=== PATIENT | female | born 1970 | race Caucasian/White ===

== ENCOUNTER 2021-01-29 06:50 | Inpatient (IN) | payer MEDICAID, OTHER ==
[2021-01-29] VITALS (12 sets, daily range): BP systolic 92–119; BP diastolic 46–74
[~2021-01-29] VITALS: Ht 162.6 cm; Wt 79.0 kg
--- NOTE | 2021-01-29 06:55 | NUR ---
Pt taken direct back from triage to room 17, changing to gown.
--- NOTE | 2021-01-29 07:05 | NUR ---
PT PRESENTS TO ED WITH C/O SOB AND LE SWELLING. DENIES CHEST PAIN. STATES SHE HAS NOT BEEN TO SEE A DOCTOR IN A "VERY BETINA GTIME". PT PRESENTS PALE AND ANXIOUS, RESPS SLIGHTLY LABORED, A&O. ALL MONITORS ATTACHED, ERPA AT BEDSIDE FOR EVAL.
--- NOTE | 2021-01-29 07:48 | NUR ---
PRECEPTOR RN NOTE: ALL MONITORS IN PLACE. PT IS SINUS TACH RATE 100'S WITH NO ECTOPY ON CLAIMS ASSOCIATE. PT IS A&O, RESPS EVEN AND UNLABORED, DENIES SOB/PAIN. PT NOTES SHE HAS HAD 3 EPISODES OF NOTING BRIGHT RED BLOOD UPON WIPING AFTER BM OVER LAST 3 DAYS. PT DENIES HEMATOCHEZIA. DENIES DARK/BLACK STOOLS. PT NOTES SOB ONLY UPON EXERTION. NAYLA UGARTE AT BEDSIDE FOR RECTAL EXAM.
--- NOTE | 2021-01-29 07:50 | NUR ---
johnathan Quinones at bedside for eval
[2021-01-29 07:53] LABS: ALBUMIN 2.5 g/dL (3.4-5.0); ANION GAP 13 mmol/L (5-15); CALCIUM 7.9 mg/dL (8.5-10.1); CHLORIDE 105 mmol/L (98-107)
[2021-01-29] MEDS ORDERED: ASPIRIN PO (07:55)
[2021-01-29] MEDS ORDERED: aleve PO (07:55)
[2021-01-29 07:56] LABS: ALANINE AMINOTRANSFERASE 38 U/L (12-78); ALKALINE PHOSPHATASE 60 U/L (45-117); CREATININE 0.94 mg/dL (0.55-1.02); TOTAL PROTEIN 6.9 g/dL (6.4-8.2)
[2021-01-29 08:29] LABS: MEAN CORPUSCULAR HEMOGLOBIN 21.1 pg (27.0-34.8); MEAN PLATELET VOLUME 7.4 fL (7.4-10.4); PLATELET COUNT 172 x10^3/uL (130-400); RED BLOOD COUNT 1.43 x10^6/uL (3.82-5.3); RED CELL DISTRIBUTION WIDTH 23.5 % (9.6-15.2)
[2021-01-29] MEDS ORDERED: SODIUM CHLORIDE FLUSH 10ML SYR IVF ONE (08:30)
[2021-01-29 08:35] LABS: INTERNATIONAL NORMALIZED RATIO 1.34 (0.93-1.1); MEAN CORPUSCULAR HGB CONC 29.2 g/dL (32.4-35.8); PROTHROMBIN TIME 14.3 Seconds (9.6-11.5)
[2021-01-29] MEDS ORDERED: PANTOPRAZOLE 40 MG IV ONE ×2 (08:44→09:26)
[2021-01-29 08:53] LABS: BAND#(MANUAL) 0.05 x10^3/uL; BANDS%(MANUAL) 1 % (0-7); BASOS#(MANUAL) 0.05 x10^3/uL (0-0.1); BASOS% (MANUAL) 1 % (0-1); LYMPH#(MANUAL) 0.61 x10^3/uL (1-3.4); LYMPHS% (MANUAL) 12 % (22-44); MONOS#(MANUAL) 0.36 x10^3/uL (0.3-2.7); MONOS% (MANUAL) 7 % (2-9); SEG#(MANUAL) 4.03 x10^3/uL (1.8-6.8); SEGS% (MANUAL) 79 % (42-75)
[2021-01-29 08:54] LABS: ANISOCYTOSIS 2+; HYPOCHROMIA 2+; MICROCYTOSIS 2+; POLYCHROMASIA 1+
[2021-01-29 08:55] LABS: <PLATELET ESTIMATE> DECREASED; <PLT MORPHOLOGY> NORMAL PLT MORPH; OVALOCYTES 1+; STOMATOCYTES 1+
[2021-01-29] MEDS ORDERED: PANTOPRAZOLE 80 MG in SODIUM CHLORIDE 0.9% 50 ML IVPB ONE (09:00)
[2021-01-29] MEDS ORDERED: PANTOPRAZOLE 40 MG IV IVPush ONE ×2 (09:00→09:30)
--- NOTE | 2021-01-29 09:10 | NUR ---
order for protonix clarified with lily salinas, edpa notified protonix 40mg iv push given, no maintenance ordered. edpa instructed rn to hold 80 mg iv protonix bolus, ordered an additional 40mg protonix iv push, as well as protonix maintenance drip. pt is a&o, resps even and unlabored, vss. sinus tach rate 100s with no ectopy. piv started x 2, prbcs ordered from blood bank.
[2021-01-29 09:16] LABS: ACETONE, SERUM Negative (Negative)
[2021-01-29] MEDS ORDERED: PANTOPRAZOLE 80 MG in SODIUM CHLORIDE 0.9% 100 ML IV SCH ×2 (09:30→17:00)
--- NOTE | 2021-01-29 09:37 | NUR ---
BLOOD RECEIVED FROM BLOOD BANK. PT IS A NEGATIVE BLOOD TYPE, BLOOD RECEIVED IS O NEGATIVE. BLOOD BANK CALLED TO CONFIRM THIS BLOOD COMPATIBLE WITH PT BLOOD TYPE, BLOOD BANK OK'Eve RN TO ADMIN BLOOD RECEIVED.
--- NOTE | 2021-01-29 09:53 | NUR ---
BLOOD TRANSFUSING TO PIV (LEFT FOREARM 20G), PROTONIX INFUSING TO PIV (RIGHT FOREARM 20G), PT TOLERATING WELL. SINUS TACH RATE 90'S WITH NO ECTOPY ON FINISHING ROOM SUPERVISOR. PT A&O, RESPS EVEN AND UNLABORED. PT MONITORED 1:1 BY RN AT BEDSIDE PER POLICY FOR FIRST 15 MIN OF TRANSFUSION. BREATH SOUNDS CLEAR THROUGHOUT PRIOR TO TRANSFUSION. PT HAS NO COMPLAINT, TOLERATING TRANSFUSION WELL.
--- NOTE | 2021-01-29 10:31 | NUR ---
PT TOLERATING TRANSFUSION WELL, RATE OF TRANSFUSION INCREASED TO 500ML/HR. PT IS A&O, RESPS EVEN AND UNLABORED, SINUS TACH RATE 90'S WITH NO ECTOPY ON DRUM TESTER. PT HAS NO COMPLAINT, NO S/SX TRANSFUSION REACTION. PROTONIX INFUSING VIA IV PUMP. HOSPITALIST MD ROWLAND AT BEDSIDE FOR ADMIT.
[2021-01-29] MEDS ORDERED: IRON SUCROSE COMPLEX 100MG/5ML IV ONE (10:42)
[2021-01-29] MEDS ORDERED: ACETAMINOPHEN 325 MG TABLET PO PRN (11:00)
[2021-01-29] MEDS ORDERED: ONDANSETRON ODT 4 MG PO PRN (11:00)
[2021-01-29] MEDS ORDERED: ENOXAPARIN 40 MG/0.4 ML SQ SCH (11:00)
[2021-01-29] MEDS ORDERED: ONDANSETRON 2MG/ML, 2ML IVPush PRN (11:00)
--- NOTE | 2021-01-29 11:02 | NUR ---
PT SITTING IN BED, TOLERATING TRANFUSION WELL, ASYMPTOMTIC. PT A&O, RESPS EVEN AND UNLABORED, VSS, NADN.
--- NOTE | 2021-01-29 11:08 | NUR ---
REPORT GIVEN TO RECEIVING SHELLY ESCALANTE
--- NOTE | 2021-01-29 11:10 | NUR ---
GI MD AT BEDSIDE FOR CONSULT
[2021-01-29] MEDS ORDERED: OCTREOTIDE 50 MCG/ML, 1ML (0.05MG/ML) IVPush ONE (11:30)
[2021-01-29] MEDS ORDERED: OCTREOTIDE 500 MCG in SODIUM CHLORIDE 0.9% 99 ML IV PRN (11:30)
--- NOTE | 2021-01-29 11:53 | NUR ---
PRECEPTOR RN NOTE: FINE TREMORS NOTED AT TIME OF GI MD ASSESSMENT, GI AWARE. KAREY NIEVES NOTIFIED NO CIWA PROTOCOL ORDERED, MD INSTRUCTED RN TO CALL PT'S HOSPITALIST FOR THIS ORDER. THIS RN CALLED MD ROWLAND WHO GAVE TELEPHONE ORDER FOR CIWA PROTOCOL, ATIVAN TO BE ADMINISTERED PO OR IV VIA SLIDING SCALE BASED ON CIWA SCORE, UP TO 2MG. PHARMACIST ANJUM CALLED FOR ASSISTANCE IN PLACING ORDER, ORDER PLACED WITH PHARMACIST ASSISTANCE. MD ROWLAND NOTIFIED THAT FIRST UNIT OF BLOOD IS COMPLETE, FINAL BLOOD VITAL SIGNS SHOWED INCREASE OF TEMP FROM 98.1 TO 98.7. LUNG SOUNDS AUSCULTATED CLEAR THROUGHOUT S/P BLOOD TRANSFUSION. PT A&O, RESPS EVEN AND UNLABORED, DENIES PAIN, NO COMPLAINT AT TIME OF TRANSPORT. ACKNOWLEDGED THIS INFORMATION, NO FURTHER ORDERS GIVEN.
[2021-01-29] MEDS ORDERED: LORazepam 0.5MG TABLET PO PRN (12:00)
[2021-01-29] MEDS ORDERED: LORazepam 2 MG/ML, 1ML IV PRN ×3 (12:00)
[2021-01-29] MEDS ORDERED: IRON DEXTRAN COMPLEX 25 MG in SODIUM CHLORIDE 0.9% 50 ML IV ONE (12:00)
[2021-01-29] MEDS ORDERED: IRON DEXTRAN COMPLEX 0 MG in SODIUM CHLORIDE 0.9% 250 ML IV ONE (12:00)
[2021-01-29] MEDS ORDERED: LORazepam 1MG TABLET PO PRN ×2 (12:00)
--- NOTE | 2021-01-29 12:07 | NUR ---
SHELLY VELÁSQUEZ CONTACTED REGARDING NEW ORDERES FOR CIWA PROTOCOL. RECEIVING SHELLY VELÁSQUEZ NOTIFIED THAT FIRST UNIT BLOOD IS COMPLETE, 2 MORE ORDERED BY EDMD IN ADDITION. CONSENT FORM FOR BLOOD SIGNED BY PT AND NAYLA UGARTE, SENT UP TO FLOOR WITH PT CHART.
[2021-01-29] MEDS ORDERED: EPINEPHRINE 1 MG/ML, 1ML IV PRN (12:30)
[2021-01-29 13:52] LABS: % IRON SATURATION 15 % (20-55); IRON LEVEL 92 mcg/dL (50-170); TOTAL IRON BINDING CAPACITY 599 mcg/dL (250-450)
[2021-01-29] MEDS ORDERED: SODIUM CHLORIDE 0.9% IV ONE ×2 (15:00→15:20)
[2021-01-29] MEDS ORDERED: IRON DEXTRAN COMPLEX IV ONE ×2 (15:00→15:20)
[2021-01-29] MEDS: LACTOBACILLUS CHEW TABLET PO SCH ×2 (16:00→20:30)
[2021-01-29 16:28] LABS: AMPHETAMINE SCREEN, URINE Negative (Negative); BARBITURATE SCREEN, URINE Negative (Negative); BENZODIAZEPINE SCREEN, URINE Negative (Negative); CANNABINOID SCREEN, URINE Negative (Negative); COCAINE SCREEN, URINE Negative (Negative); METHADONE SCREEN, URINE Negative (Negative); OPIATE SCREEN, URINE Negative (Negative)
[2021-01-29] MEDS ORDERED: MIDAZOLAM 1 MG/ML, 2ML ONE (16:35)
[2021-01-29] MEDS ORDERED: PROPOFOL 10 MG/ML, 20ML ONE (16:53)
[2021-01-29] MEDS: NICOTINE 7 MG/24 HR PATCH.TD24 TD SCH (17:55)
[2021-01-29] MEDS: PANTOPRAZOLE 80 MG in SODIUM CHLORIDE 0.9% 100 ML IV SCH (20:30)
[2021-01-29] MEDS: CARVEDILOL 6.25 MG TABLET PO SCH (20:30)
[2021-01-30] VITALS (17 sets, daily range): BP systolic 100–115; BP diastolic 59–79
[2021-01-30 05:36] LABS: BASOPHILS % (AUTO) 1 % (0-1); EOSINOPHILS % (AUTO) 1 % (1-7); LYMPHOCYTES % (AUTO) 20 % (22-44); MEAN CORPUSCULAR HGB CONC 33.3 g/dL (32.4-35.8); MEAN PLATELET VOLUME 7.8 fL (7.4-10.4); MONOCYTES % (AUTO) 12 % (2-9); NEUTROPHILS % (AUTO) 67 % (42-75); PLATELET COUNT 127 x10^3/uL (130-400); RED BLOOD COUNT 2.18 x10^6/uL (3.82-5.3); RED CELL DISTRIBUTION WIDTH 24.2 % (9.6-15.2)
[2021-01-30 05:45] LABS: CHLORIDE 108 mmol/L (98-107)
[2021-01-30 05:59] LABS: ANION GAP 6 mmol/L (5-15); CALCIUM 7.7 mg/dL (8.5-10.1); CREATININE 0.86 mg/dL (0.55-1.02)
[2021-01-30 06:30] LABS: ANISOCYTOSIS 2+; HYPOCHROMIA 2+; MICROCYTOSIS 1+; POLYCHROMASIA 1+; STOMATOCYTES 1+
[2021-01-30 06:31] LABS: <PLATELET ESTIMATE> ADEQUATE; <PLT MORPHOLOGY> NORMAL PLT MORPH; OVALOCYTES 1+
[2021-01-30] MEDS: IRON SUCROSE COMPLEX 100MG/5ML IV SCH (07:53)
[2021-01-30] MEDS: PANTOPRAZOLE 80 MG in SODIUM CHLORIDE 0.9% 100 ML IV SCH (07:53)
[2021-01-30] MEDS: LACTOBACILLUS CHEW TABLET PO SCH ×3 (07:54→20:19)
[2021-01-30] MEDS ORDERED: SODIUM CHLORIDE 0.9% 250 ML IV ONE (11:30)
[2021-01-30] MEDS: NICOTINE 7 MG/24 HR PATCH.TD24 TD SCH (16:46)
[2021-01-30] MEDS: PANTOPRAZOLE 20MG TABLET PO SCH (16:46)
[2021-01-30] MEDS: CARVEDILOL 6.25 MG TABLET PO SCH (20:20)
[2021-01-31 02:25] VITALS: BP 116/76
[2021-01-31] MEDS: PANTOPRAZOLE 20MG TABLET PO SCH (05:10)
[2021-01-31 05:24] LABS: BASOPHILS % (AUTO) 0 % (0-1); EOSINOPHILS % (AUTO) 2 % (1-7); LYMPHOCYTES % (AUTO) 21 % (22-44); MEAN CORPUSCULAR HEMOGLOBIN 27.5 pg (27.0-34.8); MEAN CORPUSCULAR HGB CONC 33.5 g/dL (32.4-35.8); MEAN PLATELET VOLUME 8.4 fL (7.4-10.4); MONOCYTES % (AUTO) 12 % (2-9); NEUTROPHILS % (AUTO) 65 % (42-75); PLATELET COUNT 100 x10^3/uL (130-400); RED BLOOD COUNT 3.56 x10^6/uL (3.82-5.3); RED CELL DISTRIBUTION WIDTH 21.9 % (9.6-15.2)
[2021-01-31 07:34] VITALS: BP 104/63
[2021-01-31] MEDS: IRON SUCROSE COMPLEX 100MG/5ML IV SCH (08:18)
[2021-01-31] MEDS: LACTOBACILLUS CHEW TABLET PO SCH (08:18)
[2021-01-31] MEDS ORDERED: NICO-485 TD (09:51)
[2021-01-31] MEDS ORDERED: CARV6.2512 PO (09:51)
[2021-01-31] MEDS ORDERED: PANT20TA4 PO (09:51)
[2021-01-31] MEDS ORDERED: ACID1TAB7 PO (09:51)
[2021-01-31] MEDS ORDERED: FERR-28 PO (10:00)
[2021-01-31] MEDS ORDERED: SENN8.6T12 PO (10:14)
== END 2021-01-31 12:21 | disposition home or self-care (01) | DRG 377 ==
LOC: ED 09:31 → EDIP 09:44 → 4EST 11:25
PROVIDERS: ADMIT Internal Medicine; ATTEND Internal Medicine
PROC: 30233N1 Transfusion of Nonautologous Red Blood Cells into Peripheral Vein, Percutaneous Approach (ICD-10-PCS; 2021-01-29)
PROC: 0DB68ZX Excision of Stomach, Via Natural or Artificial Opening Endoscopic, Diagnostic (ICD-10-PCS; principal; 2021-01-29 16:45)
DX: K29.71 Gastritis, unspecified, with bleeding (principal); K85.90 Acute pancreatitis without necrosis or infection, unspecified; D68.9 Coagulation defect, unspecified; E46 Unspecified protein-calorie malnutrition; E87.1 Hypo-osmolality and hyponatremia; K76.6 Portal hypertension; D62 Acute posthemorrhagic anemia; K25.4 Chronic or unspecified gastric ulcer with hemorrhage; D50.9 Iron deficiency anemia, unspecified; K31.89 Other diseases of stomach and duodenum; B19.20 Unspecified viral hepatitis C without hepatic coma; R60.0 Localized edema; K64.9 Unspecified hemorrhoids; Z20.822 Contact with and (suspected) exposure to COVID-19; R26.2 Difficulty in walking, not elsewhere classified; E83.51 Hypocalcemia; F17.210 Nicotine dependence, cigarettes, uncomplicated; E66.9 Obesity, unspecified; K29.70 Gastritis, unspecified, without bleeding; R06.09 Other forms of dyspnea; Z68.29 Body mass index [BMI] 29.0-29.9, adult; Z79.82 Long term (current) use of aspirin
CPT/HCPCS: 36415; 71045; 76700; 80048; 80053; 80307; 80320; 82010; 82107; 82180; 82306; 82330; 82607; 82728; 82800; 83540; 83550; 83605; 83690; 83880; 84425; 84443; 84630; 84703; 85014; 85018; 85025; 85610; 86704; 86706; 86708; 86803; 86850; 86900; 86923; 87340; 87521; 87635; 88305; 93005; 93306; G0378; J1750; J1756; J2250; J2354; J2704; C9113; G0480; J7050; P9016